=== PATIENT | female | born 1970 | race Caucasian/White ===

== ENCOUNTER 2018-06-06 01:37 | Emergency (ER) | payer SELFPAY ==
[~2018-06-06] VITALS: Ht 170.2 cm; Wt 91.0 kg
[2018-06-06] MEDS ORDERED: MORPHINE SULFATE 4 MG/ML CPJ (NOT FOR IM USE) IV STA (03:17)
[2018-06-06] MEDS ORDERED: ONDANSETRON HCL 4MG/2ML INJ IV STA (03:17)
[2018-06-06] MEDS ORDERED: SODIUM CHLORIDE 0.9% 1,000 ML IV ONE (03:17)
[2018-06-06 04:25] LABS: BASOPHILS % 0.5 % (0.0-2.0); CHLORIDE 109 mEq/L (98-107); EOSINOPHILS % 2.1 % (0.0-5.0); HEMATOCRIT. 27.1 % (36.0-48.0); HEMOGLOBIN. 8.1 g/dL (12.0-16.0); LYMPHOCYTES % 20.8 % (20.0-50.0); MEAN CORPUSCULAR HEMOGLOBIN 20.6 pg (28.0-32.0); MEAN PLATELET VOLUME 8.6 fl (7.4-10.4); MONOCYTES % 8.7 % (2.0-8.0); NEUTROPHILS % 67.9 % (40.0-76.0); PLATELET 182 x1000/uL (130-400); RED BLOOD CELL COUNT 3.92 mill/uL (4.2-5.4); RED CELL DISTRIBUTION WIDTH 20.5 % (11.6-14.6)
[2018-06-06 04:27] LABS: CLARITY URINE TURBID (CLEAR); COLOR URINE RED (YELLOW); KETONES URINE NEGATIVE (NEGATIVE); LEUKOCYTE ESTERASE URINE 1+ (NEGATIVE); NITRITE URINE NEGATIVE (NEGATIVE); OCCULT BLOOD URINE 3+ (NEGATIVE); PH URINE 5.5 (4.5-8.0); PROTEIN URINE 2+ (NEGATIVE); SPECIFIC GRAVITY URINE 1.027 (1.005-1.030)
[2018-06-06 04:46] LABS: INR 1.1
[2018-06-06 04:49] LABS: PLATELET ESTIMATE NORMAL
[2018-06-06 05:51] VITALS: BP 113/57
== END 2018-06-06 05:54 | disposition home or self-care (01) ==
LOC: ER 01:37
DX: N39.0 Urinary tract infection, site not specified (principal); D64.9 Anemia, unspecified; R03.0 Elevated blood-pressure reading, without diagnosis of hypertension
CPT/HCPCS: 36415; 80053; 81003; 81025; 85025; 85610; 96361; 96374; 96375; 99283; J2270; J2405; J7030; Z7610

== ENCOUNTER 2018-08-12 20:21 | Emergency (ER) | payer SELFPAY ==
[~2018-08-12] VITALS: Ht 165.1 cm; Wt 79.0 kg
[2018-08-12 20:33] VITALS: BP 141/79
[2018-08-12] MEDS ORDERED: SODIUM CHLORIDE 0.9% 1,000 ML IV ONE (21:53)
[2018-08-12] MEDS ORDERED: ONDANSETRON HCL 4MG/2ML INJ IV STA (21:53)
[2018-08-12] MEDS ORDERED: MORPHINE SULFATE 4 MG/ML CPJ (NOT FOR IM USE) IV STA (21:53)
[2018-08-12 22:26] LABS: BASOPHILS % 0.8 % (0.0-2.0); EOSINOPHILS % 2.6 % (0.0-5.0); HEMATOCRIT. 32.1 % (36.0-48.0); HEMOGLOBIN. 9.8 g/dL (12.0-16.0); LYMPHOCYTES % 21.9 % (20.0-50.0); MEAN CORPUSCULAR HEMOGLOBIN 20.6 pg (28.0-32.0); MEAN CORPUSCULAR VOLUME 67.4 fL (81.0-99.0); MEAN PLATELET VOLUME 8.9 fl (7.4-10.4); MONOCYTES % 7.5 % (2.0-8.0); NEUTROPHILS % 67.2 % (40.0-76.0); PLATELET 234 x1000/uL (130-400); RED BLOOD CELL COUNT 4.76 mill/uL (4.2-5.4); RED CELL DISTRIBUTION WIDTH 20.1 % (11.6-14.6)
[2018-08-12 22:30] LABS: CHLORIDE 105 mEq/L (98-107)
[2018-08-12 22:31] LABS: CLARITY URINE CLOUDY (CLEAR); COLOR URINE RED (YELLOW); KETONES URINE NEGATIVE (NEGATIVE); LEUKOCYTE ESTERASE URINE 1+ (NEGATIVE); NITRITE URINE NEGATIVE (NEGATIVE); OCCULT BLOOD URINE 3+ (NEGATIVE); PH URINE 5.5 (4.5-8.0); PROTEIN URINE 2+ (NEGATIVE); SPECIFIC GRAVITY URINE 1.023 (1.005-1.030)
[2018-08-12 22:31] LABS: HCG SCREEN NEGATIVE
[2018-08-12 22:33] LABS: PARTIAL THROMBOPLASTIN TIME 24.7 sec (23.4-31.0); PROTHROMBIN TIME 10.3 sec (9.6-11.0)
[2018-08-12 22:34] LABS: ETHANOL BLOOD < 10 mg/dL
[2018-08-12 22:48] LABS: PLATELET ESTIMATE NORMAL
[2018-08-12 23:01] LABS: *AMPHETAMINES SCREEN URINE NEGATIVE (NEGATIVE); *BARBITURATES SCREEN URINE NEGATIVE (NEGATIVE); *BENZODIAZEPINES SCREEN URINE NEGATIVE (NEGATIVE); *COCAINE SCREEN URINE NEGATIVE (NEGATIVE)
[2018-08-12 23:02] LABS: CANNABINOID URINE SCREEN NEGATIVE (NEGATIVE); METHADONE URINE SCREEN NEGATIVE (NEGATIVE); OPIATES URINE SCREEN NEGATIVE (NEGATIVE); PHENCYCLIDINE URINE SCREEN NEGATIVE (NEGATIVE)
== END 2018-08-13 01:50 | disposition home or self-care (01) ==
LOC: ER 20:21
DX: N39.0 Urinary tract infection, site not specified (principal); N83.209 Unspecified ovarian cyst, unspecified side; Z88.0 Allergy status to penicillin; Z88.6 Allergy status to analgesic agent
CPT/HCPCS: 36415; 74176; 80053; 80305; 80320; 81003; 81025; 83690; 83880; 84484; 84703; 85025; 85610; 85730; 93005; 96361; 96374; 96375; 99284; J2270; J2405; J7030; Z7610; G0480

== ENCOUNTER 2018-08-13 02:58 | Emergency (ER) | payer SELFPAY ==
[~2018-08-13] VITALS: Ht 157.5 cm; Wt 75.0 kg
[2018-08-13] MEDS ORDERED: MORPHINE SULFATE 4 MG/ML CPJ (NOT FOR IM USE) IV STA (06:26)
[2018-08-13] MEDS ORDERED: ONDANSETRON HCL 4MG/2ML INJ IV STA (06:26)
[2018-08-13 06:58] LABS: EOSINOPHILS % 1.8 % (0.0-5.0); HEMATOCRIT. 28.4 % (36.0-48.0); HEMOGLOBIN. 8.5 g/dL (12.0-16.0); LYMPHOCYTES % 18.3 % (20.0-50.0); MEAN CORPUSCULAR HEMOGLOBIN 20.5 pg (28.0-32.0); MEAN CORPUSCULAR VOLUME 68.1 fL (81.0-99.0); MEAN PLATELET VOLUME 8.4 fl (7.4-10.4); MONOCYTES % 7.1 % (2.0-8.0); NEUTROPHILS % 72.3 % (40.0-76.0); PLATELET 184 x1000/uL (130-400); RED BLOOD CELL COUNT 4.17 mill/uL (4.2-5.4); RED CELL DISTRIBUTION WIDTH 19.8 % (11.6-14.6)
[2018-08-13 07:39] LABS: BASOPHILS % 0.5 % (0.0-2.0)
[2018-08-13 09:24] VITALS: BP 110/60
== END 2018-08-13 09:46 | disposition home or self-care (01) ==
LOC: ER 02:58
DX: N83.202 Unspecified ovarian cyst, left side (principal); D64.9 Anemia, unspecified; K57.90 Diverticulosis of intestine, part unspecified, without perforation or abscess without bleeding; R16.1 Splenomegaly, not elsewhere classified; Z88.0 Allergy status to penicillin; Z88.6 Allergy status to analgesic agent; R10.30 Lower abdominal pain, unspecified
CPT/HCPCS: 36415; 76830; 76856; 85025; 96374; 96375; 99284; J2270; J2405; Z7610

== ENCOUNTER 2019-08-01 15:55 | Emergency (ER) | payer SELFPAY ==
[~2019-08-01] VITALS: Ht 157.5 cm; Wt 75.0 kg
[2019-08-01] MEDS ORDERED: ONDANSETRON 4MG ODT PO ONE (17:30)
[2019-08-01] MEDS ORDERED: ONDANSETRON HCL 4MG/2ML INJ IV ONE (18:15)
[2019-08-01] MEDS ORDERED: FAMOTIDINE 20MG/2ML VIAL IV ONE (18:45)
[2019-08-01] MEDS ORDERED: ACETAMINOPHEN 325MG TABLET PO ONE (19:45)
[2019-08-02 04:00] VITALS: BP 122/77
== END 2019-08-02 05:09 | disposition home or self-care (01) ==
LOC: ER 16:03
DX: B34.9 Viral infection, unspecified (principal); R03.0 Elevated blood-pressure reading, without diagnosis of hypertension; Z59.0 Homelessness
CPT/HCPCS: 71045; 96374; 96375; 99285; J2405; J3490; Q0162